=== PATIENT | female | born 1995 | race Caucasian/White ===

== ENCOUNTER 2019-08-03 08:59 | Emergency (ER) | payer OTHER ==
--- NOTE | 2019-08-03 09:30 | EDM.PDOC ---
ED HPI GENERAL MEDICAL PROBLEM - General Chief Complaint: Lower Extremity Injury/Pain Stated Complaint: SLIPPED ON ICE Time Seen by Provider: 08/03/19 09:11 Source of Information: Reports: Patient History Limitations: Reports: No Limitations - History of Present Illness INITIAL COMMENTS - FREE TEXT/NARRATIVE: The patient presents with left ankle pain and swelling. She was at work yesterday and she slipped on some ice and inverted her left ankle. She can walk on it but she has pain ans swelling. She did not fall. She has no other pain. She feels and hears some clicking in her ankle. Onset: Sudden Duration: Day(s): (Yesterday) Location: Reports: Lower Extremity, Left (ankle) Quality: Reports: Sharp Severity: Moderate Improves with: Reports: Immobilization Worsens with: Reports: Movement Associated Symptoms: Reports: No Other Symptoms Left Ankle Pain Score (Numeric/FACES): 6 - Related Data Allergies Allergy/AdvReac Type Severity Reaction Status Date / Time hydrocodone Allergy Swelling Verified 08/03/19 09:07 Home Meds: Home Meds Clindamycin/Niacinamide [Clindamycin 1%-Niacinamide 4%] 30 gm TP DAILY 08/03/19 [History] Spironolactone [Aldactone] 12.5 mg PO DAILY 08/03/19 [History] 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: laparoscopy for ovarian cysts - Past Surgical History HEENT Surgical History: Reports: Oral Surgery, Tonsillectomy GI Surgical History: Reports: Other (See Below) Other GI Surgeries/Procedures: endoscopy Musculoskeletal Surgical History: Reports: Arthroscopic Knee Social & Family History - Family History Family Medical History: Noncontributory - Tobacco Use Smoking Status *Q: Never Smoker Second Hand Smoke Exposure: No Review of Systems - Review of Systems Review Of Systems: See Below Constitutional: Reports: No Symptoms Eyes: Reports: No Symptoms Ears: Reports: No Symptoms Nose: Reports: No Symptoms Mouth/Throat: Reports: No Symptoms Respiratory: Reports: No Symptoms Cardiovascular: Reports: No Symptoms GI/Abdominal: Reports: No Symptoms Genitourinary: Reports: No Symptoms Musculoskeletal: Reports: Other (Left ankle pain and swelling) ED EXAM, GENERAL - Physical Exam Exam: See Below Exam Limited By: No Limitations General Appearance: Alert, No Apparent Distress Ears: Normal External Exam Nose: Normal Inspection Head: Atraumatic, Normocephalic Neck: Normal Inspection Respiratory/Chest: No Respiratory Distress Extremities: Other (Left lateral ankle has swelling and pain. Good sensation and pulses distally.) Course - Vital Signs Last Recorded V/S: Last Vital Signs Temp 98.1 F 08/03/19 09:09 Pulse 60 08/03/19 09:09 Resp 16 08/03/19 09:09 BP 111/69 08/03/19 09:09 Pulse Ox 100 08/03/19 09:09 - Orders/Labs/Meds Orders: Active Orders 24 hr Category Date Time Status Ankle Min 3V Lt [CR] Stat Exams 08/03/19 09:22 Taken - Re-Assessments/Exams Free Text/Narrative Re-Assessment/Exam: 08/03/19 09:30 I ordered an x-ray of her ankle. 08/03/19 10:09 Her x-ray looks good. I will discharge her home with an shama wrap. Departure - Departure Time of Disposition: 10:15 Disposition: Home, Self-Care 01 Condition: Good Clinical Impression: Left ankle sprain Qualifiers: Encounter type: initial encounter Involved ligament of ankle: unspecified ligament Qualified Code(s): S93.402A - Sprain of unspecified ligament of left ankle, initial encounter - Discharge Information *PRESCRIPTION DRUG MONITORING PROGRAM REVIEWED*: Not Applicable *COPY OF PRESCRIPTION DRUG MONITORING REPORT IN PATIENT JEIMY: Not Applicable Referrals: PCP,Not In Area [Primary Care Provider] - Anna Cox PA-C [Physician Drywall Application Supervisor] - 1 Week Forms: ED Department Discharge Additional Instructions: Ice your ankle for 15 minutes 3 times per day for 2 days. Elevate your ankle as much as you can for 2 days. Take tylenol or motrin for the pain. Wear your shama wrap as needed. Please return if you are worse. Sepsis Event Note - Evaluation Sepsis Screening Result: No Definite Risk - Focused Exam Vital Signs: Vital Signs Temp Pulse Resp BP Pulse Ox 08/03/19 09:09 98.1 F 60 16 111/69 100 Date Exam was Performed: 08/03/19 Time Exam was Performed: 10:09 - My Orders Last 24 Hours: My Active Orders 08/03/19 09:22 Ankle Min 3V Lt [CR] Stat - Assessment/Plan Last 24 Hours: My Active Orders 08/03/19 09:22 Ankle Min 3V Lt [CR] Stat
--- NOTE | 2019-08-04 09:17 | CR ---
Left ankle: Four views of the left ankle were obtained. Comparison: No previous ankle study. Ankle mortise is symmetric. Small bony density is noted between the talus and lateral malleolus compatible with old injury. No acute fracture, dislocation or other bony abnormality is identified. Mild soft tissue swelling is noted. Impression: 1. Findings as noted above. 2. No acute bony abnormality is identified on left ankle exam. Diagnostic code #2 This report was dictated in [place] Standard Time
== END 2019-08-03 10:25 | disposition home or self-care (01) ==
LOC: JD.ED 08:59
DX: S93.402A Sprain of unspecified ligament of left ankle, initial encounter (principal); Z88.5 Allergy status to narcotic agent; W18.40XA Slipping, tripping and stumbling without falling, unspecified, initial encounter; X50.1XXA Overexertion from prolonged static or awkward postures, initial encounter; Y92.89 Other specified places as the place of occurrence of the external cause; Y99.0 Civilian activity done for income or pay
CPT/HCPCS: 73610-26-LT; 73610-LT; 99282; 99283-25

== ENCOUNTER 2019-08-19 21:35 | Emergency (ER) | payer BC, OTHER ==
--- NOTE | 2019-08-19 23:45 | EDM.PDOC ---
ED HPI GENERAL MEDICAL PROBLEM - General Chief Complaint: Head Injury Stated Complaint: PASSED OUT AND HIT HEAD AT WORK Time Seen by Provider: 08/19/19 23:05 Source of Information: Reports: Patient History Limitations: Reports: No Limitations - History of Present Illness INITIAL COMMENTS - FREE TEXT/NARRATIVE: Ms. 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 She states that she initially had mild coccygeal discomfort, which has since resolved, and mild pain to the back of her head, presumably from striking it when she fell. She denies any other injury. The patient denies any pre-syncopal symptoms, such as lightheadedness, tingling or numbness, or palpitations. She did not bite her tongue or lose continence of bowel or bladder. No prior similar events. The patient denies recent illness, such as fever, chills, cough, dyspnea, chest pain, palpitations, nausea, vomiting, constipation, diarrhea, abdominal pain, weight gain or weight loss, recent bloody bowel movements or black bowel movements, recent joint aches, headaches, or rashes. The patient takes only medication for acne. She is not on control. The patient's PCP is out of [facility]. She did receive an influenza vaccine this season. 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) (Ovarian cysts) - Past Surgical History HEENT Surgical History: Reports: Oral Surgery (wisdom teeth extraction), Tonsillectomy GI Surgical History: Reports: EGD (x 1) Female Surgical History: Reports: Cystectomy (x 1) Musculoskeletal Surgical History: Reports: Arthroscopic Knee (left) Social & Family History - Family History Family Medical History: Noncontributory - Tobacco Use Smoking Status *Q: Never Smoker - Caffeine Use Caffeine Use: Reports: Coffee - Alcohol Use Alcohol Use History: Yes Alcohol Use Frequency: Socially - Recreational Drug Use Recreational Drug Use: No - Living Situation & Occupation Living situation: Reports: Single, Other (Dorm) Occupation: Student ([employer]) ED ROS GENERAL - Review of Systems Review Of Systems: Comprehensive ROS is negative, except as noted in HPI. - Physical Exam Exam: See Below Exam Limited By: No Limitations General Appearance: Alert, WD/WN, No Apparent Distress Eye Exam: Bilateral Eye: EOMI, Normal Inspection, PERRL Ears: Normal External Exam, Normal Canal, Hearing Grossly Normal, Normal TMs Nose: Normal Inspection, Normal Mucosa, No Blood Throat/Mouth: Normal Inspection, Normal Lips, Normal Teeth, Normal Gums, Normal Oropharynx, Normal Voice, No Airway Compromise Head Exam: Atraumatic, Normocephalic, Scalp Tenderness (mild, posterior scalp only, with no associated swelling) Neck: Normal Inspection, Supple, Non-Tender, Full Range of Motion Respiratory/Chest: No Respiratory Distress, Lungs Clear, Normal Breath Sounds, No Accessory Muscle Use Cardiovascular: Normal Peripheral Pulses, Regular Rate, Rhythm, No Edema, No Gallop, No JVD, No Murmur, No Rub GI/Abdominal: Normal Bowel Sounds, Soft, Non-Tender, No Organomegaly, No Distention, No Abnormal Bruit, No Mass (Female) Exam: Deferred Rectal (Female) Exam: Deferred Neuro Exam (Abbreviated): Alert, Oriented, CN II-XII Intact, Normal Cognition, No Motor/Sensory Deficits Back Exam: Normal Inspection, Full Range of Motion, NT Extremities: Normal Inspection, Normal Range of Motion, No Pedal Edema, Normal Capillary Refill Psychiatric: Normal Affect Skin Exam: Warm, Dry, Intact, Normal Color, No Rash EKG INTERPRETATION EKG Date: 08/19/19 Time: 23:44 Rhythm: NSR Rate (Beats/Min): 66 [place]: Normal P-Wave: Present QRS: Normal ST-T: Normal QT: Normal Comparison: NA - No Prior EKG Course - Vital Signs Last Recorded V/S: Last Vital Signs Temp 36.9 C 08/19/19 21:55 Pulse 66 08/19/19 21:55 Resp 20 08/19/19 21:55 BP 123/68 08/19/19 21:55 Pulse Ox 99 08/19/19 21:55 Orthostatic Blood Pressure [ 121/91 Standing] Orthostatic Blood Pressure [ 114/79 Supine] - Orders/Labs/Meds Orders: Active Orders 24 hr Category Date Time Status EKG Documentation Completion [RC] STAT Care 08/19/19 23:37 Active Orthostatic Vital Signs [RC] STAT Care 08/19/19 23:40 Active COMPREHENSIVE METABOLIC PN,CMP [CHEM] Stat Lab 08/19/19 23:50 Received D-DIMER QUANTITATIVE [COAG] Stat Lab 08/19/19 23:50 Received HCG QUANTITATIVE [CHEM] Stat Lab 08/19/19 23:50 Received Labs: Laboratory Tests 08/19/19 Range/Units 23:50 WBC 9.37 (3.98-10.04) K/mm3 RBC 4.58 (3.98-5.22) M/mm3 Hgb 13.8 (11.2-15.7) gm/dl Hct 39.2 (34.1-44.9) % MCV 85.6 (79.4-94.8) fl MCH 30.1 (25.6-32.2) pg MCHC 35.2 (32.2-35.5) g/dl RDW Std Deviation 39.7 (36.4-46.3) fL Plt Count 315 (182-369) K/mm3 MPV 8.9 L (9.4-12.3) fl Neut % (Auto) 65.3 (34.0-71.1) % Lymph % (Auto) 23.1 (19.3-51.7) % [place] % (Auto) 10.4 (4.7-12.5) % Eos % (Auto) 0.6 L (0.7-5.8) Baso % (Auto) 0.4 (0.1-1.2) % Neut # (Auto) 6.12 (1.56-6.13) K/mm3 Lymph # (Auto) 2.16 (1.18-3.74) K/mm3 [place] # (Auto) 0.97 H (0.24-0.36) K/mm3 Eos # (Auto) 0.06 (0.04-0.36) K/mm3 Baso # (Auto) 0.04 (0.01-0.08) K/mm3 - Re-Assessments/Exams Free Text/Narrative Re-Assessment/Exam: 08/19/19 23:38 The patient's history is most consistent with her syncope being due to venous pooling due to prolonged standing, however, I have ordered an ECG to evaluate for a dysrhythmia, along with orthostatics and blood work. On physical examination, there is no suggestion of a depressed skull fracture or basilar skull fracture. Her neurologic examination is completely normal, and her Kermit Coma Scale is 15. There is no retrograde amnesia. She states that the back of her head hurts only a "little bit", and she has not vomited. There is no suggestion that she suffered a seizure. She is not on an anticoagulant. She has not imbibed alcohol or recreational drugs. In accordance with the [facility], an emergency CT scan of her head is not indicated. 08/20/19 00:11 The patient is not orthostatic. 08/20/19 00:47 The patient's CBC is unremarkable. Her CMP is unremarkable. Her D-dimer is <0.19. Her quantitative hCG is 1.0. As above, the patient's workup tonight is completely unremarkable. She is not anemic. She is not dehydrated, there are no electrolyte abnormalities, and her blood glucose is normal. She does not have a pulmonary embolus. She is not . Her ECG was unremarkable. As above, I suspect that the patient's syncopal episode was due to venous pooling due to prolonged standing. No specific treatment is required. She may safely be discharged home. Departure - Departure Time of Disposition: 00:52 Disposition: Home, Self-Care 01 Condition: Good Clinical Impression: Syncope - Discharge Information *PRESCRIPTION DRUG MONITORING PROGRAM REVIEWED*: Not Applicable *COPY OF PRESCRIPTION DRUG MONITORING REPORT IN PATIENT JEIMY: Not Applicable Referrals: PCP,Not In Area [Primary Care Provider] - Forms: ED Department Discharge Additional Instructions: You were seen in the emergency room after passing out while cooking tonight. Workup in the ER included blood work, positional blood pressure checks, and an ECG. Your entire workup was unremarkable. You are not anemic. You are not dehydrated. Your blood sugar was normal. You do not have a blood clot in your lungs. You are not . No abnormal rhythms were found on your ECG. You did not suffer a concussion. Based on her history, physical exam, and ER tests, you most likely passed out because you were standing too long, and blood pooled in your lower extremities. In the future, be sure to shift your weight or flex your leg muscles if you are standing for a prolonged period of time. If any other problems, please do not hesitate to return to the ER. Sepsis Event Note - Evaluation Sepsis Screening Result: No Definite Risk - Focused Exam Vital Signs: Vital Signs Temp Pulse Resp BP Pulse Ox 08/19/19 21:55 36.9 C 66 20 123/68 99 Date Exam was Performed: 08/20/19 Time Exam was Performed: 00:14 - My Orders Last 24 Hours: My Active Orders 08/19/19 23:37 EKG Documentation Completion [RC] STAT 08/19/19 23:40 Orthostatic Vital Signs [RC] STAT 08/19/19 23:50 COMPREHENSIVE METABOLIC PN,CMP [CHEM] Stat D-DIMER QUANTITATIVE [COAG] Stat HCG QUANTITATIVE [CHEM] Stat - Assessment/Plan Last 24 Hours: My Active Orders 08/19/19 23:37 EKG Documentation Completion [RC] STAT 08/19/19 23:40 Orthostatic Vital Signs [RC] STAT 08/19/19 23:50 COMPREHENSIVE METABOLIC PN,CMP [CHEM] Stat D-DIMER QUANTITATIVE [COAG] Stat HCG QUANTITATIVE [CHEM] Stat
== END 2019-08-20 01:03 | disposition home or self-care (01) ==
LOC: JD.ED 21:35
DX: R55 Syncope and collapse (principal); R51 Headache; Z88.5 Allergy status to narcotic agent
CPT/HCPCS: 36415; 80053; 84702; 85025; 85379; 93005; 93010; 99283; 99284-25

== ENCOUNTER 2020-04-16 09:47 | Emergency (ER) | payer OTHER, BC ==
--- NOTE | 2020-04-16 10:09 | EDM.PDOC ---
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 She reports that she had her gallbladder removed in September of this year and has had worsening of her chronic diarrhea since that time. Usually every time she eats she has a diarrhea stool. No blood noted. No nausea or vomiting. She states since early January of this year she started to have me norrhagia will flow very heavily including passage of large blood clots intermittently for the entire month of January. Then it stopped for only a few days and then started up again. It is been like this for the whole summer. She used to be on control pill for several years 3 months at a time and then a week off to see if she would get a withdrawal bleed. This has now been discontinued and she is on the Nuva ring. However she continues to flow heavily per vagina. She started to feel lightheaded dizzy and weak. Concern is for developing anemia. She works at [employer] in [place]. Onset: Other (Chronic problem dating back to beginning of January 2020.) Onset Date: 01/12/20 Duration: Week(s):, Chronic, Constant Location: Reports: Other (Heavy bleeding per vagina i.e. menorrhagia on a daily basis. Associate with passage of large clots.) Quality: Reports: Other (Use lower abdominal discomfort but ) Severity: Moderate (so associated epigastric pressure discomfort.) Improves with: Reports: None Worsens with: Reports: None Context: Denies: Activity, Exercise, Lifting, Sick Contact, Trauma, Other Associated Symptoms: Reports: Malaise, Shortness of Breath (Bárbara going up a flight of stairs.), Other (Headed and dizziness at times.). 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 (see below) Upper Abdomen Pain Score (Numeric/FACES): 5 - Related Data Allergies Allergy/AdvReac Type Severity Reaction Status Date / Time hydrocodone Allergy Severe Rash Verified 04/16/20 10:06 Home Meds: Home Meds Ethinyl Estradiol/Etonogestrel [Nuvaring Vaginal Ring] 1 dose VAG ASDIRECTED 04/16/20 [History] Iron 75 mg PO DAILY 04/16/20 [History] Omeprazole Magnesium [Prilosec Otc] 20 mg PO DAILY PRN 04/16/20 [History] medroxyPROGESTERone [Provera] 10 mg PO BEDTIME #10 tab 04/16/20 [Rx] Past Medical History EBAY RESELLER History: Reports: Other (See Below) (Ovarian cysts) Other EBAY RESELLER History: laparoscopy for ovarian cysts - Past Surgical History HEENT Surgical History: Reports: Oral Surgery (wisdom teeth extraction), Tonsillectomy GI Surgical History: Reports: Cholecystectomy (She had a lap cholecystectomy carried out in September of this year.), EGD (x 1) Female Surgical History: Reports: Cystectomy (x 1) Musculoskeletal Surgical History: Reports: Arthroscopic Knee (left) Social & Family History - Family History Family Medical History: Noncontributory - Caffeine Use Caffeine Use: Reports: Coffee - Living Situation & Occupation Living situation: Reports: Single, Other (Dorm) Occupation: Student ([employer]) [employer] - Review of Systems Review Of Systems: See Below Constitutional: Reports: Malaise, Weakness, Fatigue. Denies: Fever, Chills HEENT: Reports: No Symptoms Respiratory: Reports: Shortness of Breath. Denies: Wheezing, Pleuritic Chest Pain (Especially on exertion such as going up a flight of stairs.), Cough Cardiovascular: Reports: Lightheadedness. Denies: Chest Pain, Blood Pressure Problem, Claudication, Dyspnea on Exertion, Orthopnea, Palpitations Endocrine: Reports: Fatigue GI/Abdominal: Reports: Diarrhea (Chronic loose stools usually worse after eating. This is worsened since her gallbladder was removed. I suspect bile salt induced catharsis.), Decreased Appetite : Reports: Other (Experiencing heavy bleeding per vagina I her menorrhagia more or less since the beginning of January for the i.e. for the last 3 months. Has seen several doctors with no improvement in symptoms.) Musculoskeletal: Reports: No Symptoms Skin: Reports: Pallor (Mild pallor.) Neurological: Reports: Dizziness Psychiatric: Reports: No Symptoms (With standing at times.) Hematologic/Lymphatic: Reports: No Symptoms Immunologic: Reports: No Symptoms ED EXAM, GI/ABD - Physical Exam Exam: See Below Exam Limited By: No Limitations General Appearance: Alert, WD/WN, No Apparent Distress, Other (Temperature is 36.4 with a heart rate of 84 and sinus respiratory is 19 BP 131/84 with O2 sats of 96% on room air.) Eyes: Bilateral: Pale Conjunctiva (Very mild pallor of the for margin. Hemoglobin this appears to be greater than 10.) Respiratory/Chest: No Respiratory Distress, Lungs Clear, Normal Breath Sounds, No Accessory Muscle Use Cardiovascular: Normal Peripheral Pulses, Regular Rate, Rhythm, No Edema, No Gallop, No Murmur GI/Abdominal Exam: Normal Bowel Sounds, Soft, Non-Tender, No Organomegaly, No Abnormal Bruit, No Mass, Pelvis Stable, Other (Recent cholecystectomy surgical wounds.) Back Exam: Normal Inspection, Full Range of Motion. No: CVA Tenderness (L), CVA Tenderness (R) Extremities: Normal Inspection, Normal Range of Motion, Non-Tender, No Pedal Edema Neurological: Alert, Oriented, CN II-XII Intact, Normal Cognition, No Motor/Sensory Deficits Psychiatric: Normal Affect, Normal Mood Skin Exam: Warm, Dry, Intact, No Rash (Very minimal pallor.), Pallor Course - Vital Signs Last Recorded V/S: Last Vital Signs Temp 36.4 C 04/16/20 10:03 Pulse 84 04/16/20 10:03 Resp 19 04/16/20 10:03 BP 131/84 04/16/20 10:03 Pulse Ox 96 04/16/20 10:03 - Orders/Labs/Meds Orders: Active Orders 24 hr Category Date Time Status Abdomen 1V Flat [CR] Stat Exams 04/16/20 10:25 Taken Dextrose 5%-0.9% NaCl [Dextrose 5%-Normal Saline] 1,000 Med 04/16/20 10:15 Active ml IV ASDIRECTED Medication Orders Dextrose/Sodium Chloride (Dextrose 5%-Normal Saline) 1,000 mls @ 150 mls/hr IV ASDIRECTED CLAUDIA Last Admin: 04/16/20 10:24 Dose: 150 mls/hr Documented by: [email or web address] Labs: Laboratory Tests 04/16/20 04/16/20 04/16/20 Range/Units 10:25 10:25 10:25 WBC 9.80 (3.98-10.04) K/mm3 RBC 5.10 (3.98-5.22) M/mm3 Hgb 15.5 D (11.2-15.7) gm/dl Hct 44.1 (34.1-44.9) % MCV 86.5 (79.4-94.8) fl MCH 30.4 (25.6-32.2) pg MCHC 35.1 (32.2-35.5) g/dl RDW Std Deviation 40.5 (36.4-46.3) fL Plt Count 403 H D (182-369) K/mm3 MPV 8.9 L (9.4-12.3) fl Neut % (Auto) 71.9 H (34.0-71.1) % Lymph % (Auto) 17.9 L (19.3-51.7) % [place] % (Auto) 9.0 (4.7-12.5) % Eos % (Auto) 0.6 L (0.7-5.8) Baso % (Auto) 0.5 (0.1-1.2) % Neut # (Auto) 7.05 H (1.56-6.13) K/mm3 Lymph # (Auto) 1.75 (1.18-3.74) K/mm3 [place] # (Auto) 0.88 H (0.24-0.36) K/mm3 Eos # (Auto) 0.06 (0.04-0.36) K/mm3 Baso # (Auto) 0.05 (0.01-0.08) K/mm3 PT (9.7-11.7) SECONDS INR APTT (22-31) SECONDS Sodium 141 (136-145) mEq/L Potassium 4.0 (3.5-5.1) mEq/L Chloride 102 (98-107) mEq/L Carbon Dioxide 29 (21-32) mEq/L Anion Gap 14.0 (5-15) BUN 9 (7-18) mg/dL Creatinine 1.0 (0.55-1.02) mg/dL Est Cr Clr Drug Dosing 89.02 mL/min Estimated GFR (MDRD) > 60 (>60) mL/min BUN/Creatinine Ratio 9.0 L (14-18) Glucose 90 (74-106) mg/dL Calcium 9.4 (8.5-10.1) mg/dL Total Bilirubin 0.9 (0.2-1.0) mg/dL AST 17 (15-37) U/L ALT 21 (14-59) U/L Alkaline Phosphatase 55 (46-116) U/L C-Reactive Protein 0.5 (<1.0) mg/dL Total Protein 7.8 (6.4-8.2) g/dl Albumin 4.2 (3.4-5.0) g/dl Globulin 3.6 gm/dL Albumin/Globulin Ratio 1.2 (1-2) HCG, Qual Negative (NEGATIVE) Urine Color (Yellow) Urine Appearance (Clear) Urine pH (5.0-8.0) Ur Specific [place] (1.005-1.030) Urine Protein (Negative) Urine Glucose (UA) (Negative) Urine Ketones (Negative) Urine Occult Blood (Negative) Urine Nitrite (Negative) Urine Bilirubin (Negative) Urine Urobilinogen (0.2-1.0) Ur Leukocyte Esterase (Negative) Urine RBC (0-5) /hpf Urine WBC (0-5) /hpf Ur Squamous Epith Cells (0-5) /hpf Urine Bacteria (FEW) /hpf Urine Mucus (FEW) /hpf 04/16/20 04/16/20 Range/Units 10:25 10:55 WBC (3.98-10.04) K/mm3 RBC (3.98-5.22) M/mm3 Hgb (11.2-15.7) gm/dl Hct (34.1-44.9) % MCV (79.4-94.8) fl MCH (25.6-32.2) pg MCHC (32.2-35.5) g/dl RDW Std Deviation (36.4-46.3) fL Plt Count (182-369) K/mm3 MPV (9.4-12.3) fl Neut % (Auto) (34.0-71.1) % Lymph % (Auto) (19.3-51.7) % [place] % (Auto) (4.7-12.5) % Eos % (Auto) (0.7-5.8) Baso % (Auto) (0.1-1.2) % Neut # (Auto) (1.56-6.13) K/mm3 Lymph # (Auto) (1.18-3.74) K/mm3 [place] # (Auto) (0.24-0.36) K/mm3 Eos # (Auto) (0.04-0.36) K/mm3 Baso # (Auto) (0.01-0.08) K/mm3 PT 10.9 (9.7-11.7) SECONDS INR 1.02 APTT 31 (22-31) SECONDS Sodium (136-145) mEq/L Potassium (3.5-5.1) mEq/L Chloride (98-107) mEq/L Carbon Dioxide (21-32) mEq/L Anion Gap (5-15) BUN (7-18) mg/dL Creatinine (0.55-1.02) mg/dL Est Cr Clr Drug Dosing mL/min Estimated GFR (MDRD) (>60) mL/min BUN/Creatinine Ratio (14-18) Glucose (74-106) mg/dL Calcium (8.5-10.1) mg/dL Total Bilirubin (0.2-1.0) mg/dL AST (15-37) U/L ALT (14-59) U/L Alkaline Phosphatase (46-116) U/L C-Reactive Protein (<1.0) mg/dL Total Protein (6.4-8.2) g/dl Albumin (3.4-5.0) g/dl Globulin gm/dL Albumin/Globulin Ratio (1-2) HCG, Qual (NEGATIVE) Urine Color Yellow (Yellow) Urine Appearance Clear (Clear) Urine pH 7.5 (5.0-8.0) Ur Specific [place] 1.025 (1.005-1.030) Urine Protein Trace H (Negative) Urine Glucose (UA) Negative (Negative) Urine Ketones Trace H (Negative) Urine Occult Blood Trace-intact H (Negative) Urine Nitrite Negative (Negative) Urine Bilirubin 1+ H (Negative) Urine Urobilinogen 0.2 (0.2-1.0) Ur Leukocyte Esterase Trace H (Negative) Urine RBC 5-10 H (0-5) /hpf Urine WBC 5-10 H (0-5) /hpf Ur Squamous Epith Cells 0-5 (0-5) /hpf Urine Bacteria Few (FEW) /hpf Urine Mucus Few (FEW) /hpf Meds: Medications Generic Name Dose Route Start Last Admin Trade Name Harry PRN Reason Stop Dose Admin Dextrose/Sodium Chloride 1,000 mls @ 150 mls/hr 04/16/20 10:15 04/16/20 10:24 Dextrose 5%-Normal Saline IV 150 mls/hr ASDIRECTED [facility] Administration - Radiology Interpretation Free Text/Narrative:: 4-year-old female presents to the ED primarily with menorrhagia off and on since the beginning of January i.e. 3 months. She started to feel lightheaded dizzy and short of breath on minimal exertion suggesting she is developing anemia. She reports she is often passing large clots per vagina as well. No recent pregnancies. She reports that she was on a oral contraceptive pill 3 months on and a week off to see if she would develop any withdrawal bleeding for multiple years with no problems. This is now been discontinued. She is currently on NuvaRing and is unclear when this was started but she states it has not helped control the menorrhagia. She does clinically appear mildly pallid. Vital signs are stable. Complaining of diffuse lower abdominal and some epigastric pressure discomfort. She has been having chronic diarrhea sounds like she had diarrhea prior to having her cholecystectomy 8 out but worse since that procedure was done. Plan she will have 1 view of the abdomen performed. IV will be D5 normal saline at 150 mils per hour. Routine labs to be collected including a beta hCG qualitative. - Re-Assessments/Exams Free Text/Narrative Re-Assessment/Exam: 04/16/20 12:28 White count is 9.80. 71.9% neutrophils on the auto differential. Hemoglobin is 15.5 with hematocrit of 44.1. MCV is normal platelet count 403,000. PT is 10.9 with an INR of 1.02. PTT is 31 sodium 141 with potassium 4.0. Chloride 102 with a bicarb of 29. Anion gap is 14.0. BUN is 9 with a cr eatinine of 1.0. GFR is greater than 60. Leukosis 90. Calcium 9.4 liver function normal. C-reactive protein is 0.5. Total protein 7.8 with an albumin fraction of 4.2. Qualitative hCG is negative. Urinalysis shows trace of protein trace of ketones and trace of occult blood. 1+ bilirubin on the dip. Leukocytes esterase trace. The micro shows 5-10 RBCs per high-power field and 5-10 WBCs per per field with very few bacteria appreciated. 04/16/20 12:37 Patient reassured about the laboratory findings indicating a hemoglobin of 15.5 and certainly no need for a blood transfusion. Diagnosis is dysfunctional uterine bleeding. She will be treated with Provera 10 mg every night at bedtime for the next 10 days. Note will be given to excuse her from the workplace until Sunday next week. He is to rehydrate over the weekend. Departure - Departure Time of Disposition: 12:29 Disposition: Home, Self-Care 01 Condition: Fair Clinical Impression: Dysfunctional uterine bleeding - Discharge Information *PRESCRIPTION DRUG MONITORING PROGRAM REVIEWED*: Not Applicable *COPY OF PRESCRIPTION DRUG MONITORING REPORT IN PATIENT JEIMY: Not Applicable Prescriptions: medroxyPROGESTERone [Provera] 10 mg PO BEDTIME #10 tab Referrals: PCP,Not In Area [Primary Care Provider] - Forms: ED Department Discharge Additional Instructions: Valuation in the emergency room today in regards to persistent heavy bleeding per vagina since early January of this year. Bleeding is heavy enough to also be passing large clots at times. Associated diffuse lower abdominal cramping pain. Recently more lightheaded dizzy and mild pallor in color. Recent addition to ethinyl estradiol tablets to your treatment plan have not done the trick in terms of bringing the bleeding under control. Lab test date done today revealed a hemoglobin of 15.5. No other abnormalities were appreciated in your lab work. Diagnosis is dysfunctional uterine bleeding which means hormone imbalance usually no progesterone as you have not been ovulating for several months. Treatment is therefore medication Provera which is progesterone tablet 1 tablet at bedtime for the next 10 days. Hopefully the bleeding will come under control usually between 2 and 3 days after starting the medication. 2 to 3 days after discontinuing the medication you were likely start to have a menstrual cycle and hopefully all of the lining of the uterus will set at the same time causing a reset of growth of the lining of the uterus at that time. If dysfunctional bleeding continues after that time follow-up with oncologist is required for pelvic ultrasound to have a look at the ovaries and perhaps endometrial biopsy. Sepsis Event Note (ED) - Evaluation Sepsis Screening Result: No Definite Risk - Focused Exam Vital Signs: Vital Signs Temp Pulse Resp BP Pulse Ox 04/16/20 10:03 36.4 C 84 19 131/84 96 - My Orders Last 24 Hours: My Active Orders 04/16/20 10:15 Dextrose 5%-0.9% NaCl [Dextrose 5%-Normal Saline] 1,000 ml IV ASDIRECTED 04/16/20 10:25 Abdomen 1V Flat [CR] Stat - Assessment/Plan Last 24 Hours: My Active Orders 04/16/20 10:15 Dextrose 5%-0.9% NaCl [Dextrose 5%-Normal Saline] 1,000 ml IV ASDIRECTED 04/16/20 10:25 Abdomen 1V Flat [CR] Stat
[2020-04-16] MEDS ORDERED: Dextrose 5%-0.9% NaCl 1,000 ML IV SCH (10:15)
--- NOTE | 2020-04-16 12:49 | CR ---
Abdomen: Supine view of the abdomen was obtained. Comparison: No previous study. Transitional segment seen at the lumbosacral junction. Surgical clips are seen from prior cholecystectomy. Single surgical clip is seen with the left pelvis. Bowel gas pattern appears normal. No abnormal calcifications or soft tissue abnormality is appreciated. Impression: 1. Findings as noted above. 2. Nothing acute is seen. Diagnostic code #2 This report was dictated in MDT
== END 2020-04-16 13:16 | disposition home or self-care (01) ==
LOC: JD.ED 09:47
DX: N93.8 Other specified abnormal uterine and vaginal bleeding (principal); Z88.5 Allergy status to narcotic agent
CPT/HCPCS: 36415; 74018; 80053; 81001; 84703; 85025; 85610; 85730; 86140; 96360; 96361; 99284; J7042

== ENCOUNTER 2021-09-07 16:41 | Emergency (ER) | payer BC, OTHER ==
[2021-09-07] MEDS ORDERED: Sodium Chloride 0.9% 1,000 ML IV ONE (17:05)
[2021-09-07] MEDS ORDERED: Sodium Chloride 0.9% 10 ML Syringe FLUSH PRN (17:05)
[2021-09-07] MEDS ORDERED: Acetaminophen 325 MG Tab PO ONE (17:38)
[2021-09-07 19:03] LABS: CORONAVIRUS COVID-19 NAA NEGATIVE (NEGATIVE)
[2021-09-07] MEDS ORDERED: Ibuprofen 600 MG Tab PO ONE (19:48)
== END 2021-09-07 20:09 | disposition home or self-care (01) ==
LOC: JD.ED 16:41
DX: B34.9 Viral infection, unspecified (principal); Z88.5 Allergy status to narcotic agent; Z20.822 Contact with and (suspected) exposure to COVID-19
CPT/HCPCS: 0240U; 36415; 71045; 80053; 81001; 83605; 85007; 85027; 85610; 86140; 87040; 93005; 99284; A9270; J7030